=== PATIENT | male | born 1995 | race Caucasian/White ===

== ENCOUNTER → 2017-12-24 18:55 | Day surgery (SDC) | payer OTHER ==
[2017-12-24] MEDS: BUPIVACAINE 0.5% (SDV) 30 ML INJ (15:02)
[2017-12-24] MEDS: LIDOCAINE 2% (MDV) 20 ML INJ (15:02)
[2017-12-24] MEDS: ONDANSETRON 4 MG INJ IV (18:16)
[2017-12-24] MEDS: OXYCODONE/ACETAMINOPHEN (5/325) TAB PO (18:16)
[~2017-12-24 18:55] MED LIST: ALBUTEROL 0.083% (NEB) 2.5 MG/3 ML AMP HHN; CEFAZOLIN 1 GM INJ; DEXAMETHASONE 4 MG/ML 1 ML INJ; DIPHENHYDRAMINE 50 MG INJ IV; EPHEDrine SULFATE 50 MG/5 ML SYG IV; FENTAnyl 50 MCG/ML VIAL; FENTAnyl 50 MCG/ML VIAL IV; HYDROmorphONE 1 MG/5 ML IV SYRINGE IV; IPRATROPIUM (NEB) 0.5 MG/2.5 ML AMP HHN; LABETALOL HCL 20MG INJ IV; MEPERIDINE 25 MG INJ IV; MIDAZOLAM 1 MG/ML 2 ML INJ; MIDAZOLAM 1 MG/ML 2 ML INJ IV; OXYCODONE/ACETAMINOPHEN (5/325) TAB PO; PROPOFOL 20 ML; TRIMETHOBENZAMIDE 100 MG/ML VIAL IM; hydrALAzine 20 MG INJ IV
== END | disposition home or self-care (01) ==
DX: L60.0 Ingrowing nail (principal); L03.032 Cellulitis of left toe
CPT/HCPCS: 11750; 88304